=== PATIENT | female | born 1965 | race Caucasian/White ===

== ENCOUNTER 2017-04-14 19:47 | Emergency (ER) | payer BC ==
[~2017-04-14] VITALS: Ht 165.1 cm; Wt 129.0 kg
[2017-04-14] MEDS ORDERED: IV NORMAL SALINE 1,000ML 1,000 ML IV SCH (20:06)
[2017-04-14] MEDS ORDERED: RIVA10TA PO (20:10)
--- NOTE | 2017-04-14 20:14 | PHYS DOC ---
Past History Past Medical History: Cancer Past Surgical History: Cholecystectomy, Hysterectomy Additional Past Surgical Histo: mastectomy, reconstructive breast surgery, lipoma resection Smoking: Non-smoker Alcohol Use: None Drug Use: None Adult General Chief Complaint Chief Complaint: UPPER EXTREMITY PAIN HPI HPI Is a pleasant 52-year-old female with a history of breast cancer who had a left radical mastectomy. She had reconstructive surgery and a lift done on the right breast 3-4 weeks ago and lipase section to replace soft tissue in the left breast reconstruction area at the same time. About 34 days ago patient began having extremity pain in the left biceps/inner arm that described as dull and achy first that has not become more progressive. She has localized swelling and pain to the inside of the bicep with no radiation. She denies any numbness and tingling or weakness of the hand, she denies any direct trauma but says the pain is gotten progressively worse with range of motion and usage of the shoulder and bicep. 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 She denies any direct trauma to the shoulder or bicep. She denies any night sweats weight loss chills fevers rash or other joint swelling or pain. Patient has no shortness of breath no chest pain no other abdominal pain, URI symptoms or neck pain. Pain is presently a 7 of 10 at rest. Patient's pain is 10 of 10 with movement. Patient is feeling so couple she has to sleep in a chair upright at night. sHe says her prior lower extremity DVTs feel just as listed before. She further denies any local IV placement in the last 3-4 weeks over this bicep. Review of Systems Review of Systems Constitutional: Denies fever or chills [] Eyes: Denies change in visual acuity, redness, or eye pain [] HENT: Denies nasal congestion or sore throat [] Respiratory: Denies cough or shortness of breath [] Cardiovascular: No additional information not addressed in HPI [] GI: Denies abdominal pain, nausea, vomiting, bloody stools or diarrhea [] : Denies dysuria or hematuria [] Musculoskeletal: sHe complains of left arm and shoulder pain that's progressive in nature Integument: Denies rash or skin lesions [] Neurologic: Denies headache, focal weakness or sensory changes [] Endocrine: Denies polyuria or polydipsia [] Allergies Allergies Allergies Coded Allergies Type Severity Reaction Last Updated Verified codeine Allergy Intermediate Hives 04/14/17 Yes Physical Exam Physical Exam Constitutional: Well developed, well nourished, no acute distress, non-toxic appearance. Patient is morbidly obese HENT: Normocephalic, atraumatic, bilateral external ears normal, oropharynx moist, no oral exudates, nose normal. [] Eyes: PERRLA, EOMI, conjunctiva normal, no discharge. [] Neck: Normal range of motion, no tenderness, supple, no stridor. [] Cardiovascular:Heart rate regular rhythm, no murmur []agents chest wall does not demonstrate any erythema localized soft tissue swelling or tenderness to palpation on exam. Lungs & Thorax: Bilateral breath sounds clear to auscultation [] Abdomen: Bowel sounds normal, soft, no tenderness, no masses, no pulsatile masses. [] Skin: Warm, dry, no erythema, no rash. [] Back: No tenderness, no CVA tenderness. [] Extremities: She has significant tenderness to palpation of the soft tissue of the left bicep. There is some medial swelling as well. There is no warmth or skin changes in skin color or rash. She has some palpable cords located superficially in the tissue. She has decreased range of motion at the bicep secondary to pain she has no tenderness to palpation over the anterior lateral medial shoulder. She has no tenderness along the biceps tendon. She has brisk capillary refill, brisk peripheral pulses. There is no bony tenderness to palpation of the elbow or hand wrist or forearm. Neurologic: Alert and oriented X 3, normal motor function, normal sensory function, no focal deficits noted. [] Psychologic: Affect normal, judgement normal, mood normal. [] Current Patient Data Lab Results Laboratory Tests Test 04/14/17 20:25 White Blood Count 9.7 x10^3/uL (4.0-11.0) Red Blood Count 4.60 x10^6/uL (3.50-5.40) Hemoglobin 13.1 g/dL (12.0-15.5) Hematocrit 38.3 % (36.0-47.0) Mean Corpuscular Volume 83 fL (79-100) Mean Corpuscular Hemoglobin 28 pg (25-35) Mean Corpuscular Hemoglobin Concent 34 g/dL (31-37) Red Cell Distribution Width 14.2 % (11.5-14.5) Platelet Count 331 x10^3/uL (140-400) Neutrophils (%) (Auto) 64 % (31-73) Lymphocytes (%) (Auto) 23 % (24-48) L Monocytes (%) (Auto) 7 % (0-9) Eosinophils (%) (Auto) 6 % (0-3) H Basophils (%) (Auto) 1 % (0-3) Neutrophils # (Auto) 6.2 x10^3uL (1.8-7.7) Lymphocytes # (Auto) 2.2 x10^3/uL (1.0-4.8) Monocytes # (Auto) 0.6 x10^3/uL (0.0-1.1) Eosinophils # (Auto) 0.5 x10^3/uL (0.0-0.7) Basophils # (Auto) 0.1 x10^3/uL (0.0-0.2) Erythrocyte Sedimentation Rate Pending Sodium Level 143 mmol/L (136-145) Potassium Level 3.8 mmol/L (3.5-5.1) Chloride Level 105 mmol/L (98-107) Carbon Dioxide Level 29 mmol/L (21-32) Anion Gap 9 (6-14) Blood Urea Nitrogen 16 mg/dL (7-20) Creatinine 0.8 mg/dL (0.6-1.0) Estimated GFR (Cockcroft-Gault) 75.0 BUN/Creatinine Ratio 20 (6-20) Glucose Level 169 mg/dL (70-99) H Calcium Level 9.4 mg/dL (8.5-10.1) Total Bilirubin 0.4 mg/dL (0.2-1.0) Aspartate Amino Transferase (AST) 15 U/L (15-37) Alanine Aminotransferase (ALT) 22 U/L (14-59) Alkaline Phosphatase 134 U/L (46-116) H Creatine Kinase 69 U/L (26-192) Creatine Kinase MB (Mass) < 0.5 ng/mL (0.0-3.6) Creatine Kinase MB Relative Index 0.7 % (0-4) Troponin I Quantitative < 0.017 ng/mL (0-0.055) C-Reactive Protein 14.0 mg/L (0-3.3) H Total Protein 7.8 g/dL (6.4-8.2) Albumin 3.6 g/dL (3.4-5.0) Albumin/Globulin Ratio 0.9 (1.0-1.7) L EKG EKG EKG timed 8:25 PM 04/14/2017 demonstrates heart rate of 89 there is a pediatric QRS revision of a normal sinus rhythm there is significant left axis deviation TX interval 176 which is normal, QS with is 112 which is mildly elevated representing a left anterior fascicular block patient has an ATV L leg greater than 15 mV which is likely secondary to ventricular hypertrophy of the left ventricle, patient also has a questionable Q wave in V1 and V2 V3 which may represent an old infarct.[] Radiology/Procedures Radiology/Procedures []Has had ultrasound did not demonstrate any signs of obstruction of the blood vessels. There is no DVT, no soft tissue swelling, no abscess noted on ultrasound. Course & Med Decision Making Course & Med Decision Making Pertinent Labs and Imaging studies reviewed. (See chart for details) she presents with left arm pain following a surgical procedure 3-4 weeks ago. My concern is more with inflammatory or infectious process as opposed to a DVT in the superficial blood vessels of the arm. Patient's pain is improved with therapy at this time 9:05 PM. She is normal, CMP is unremarkable with exception of C-reactive protein which is elevated at 14. This may represent an inflammatory and infectious process still waiting DVT study. Time is now 9:45 PM patient is still having discomfort feels markedly improved with pain medication provided. Ultrasound reviewed by me and read by radiology demonstrates no DVT, no soft tissue swelling or abscess collection underneath this tissue skin. [] This point my considerations include localized soft tissue inflammation or a myositis, inflammation of the lipids or soft tissue fat below the tissue, cellulitis, soft tissue contusion. I'll provide her some anti-inflammatory pain medications and have her follow up with her primary care doctor as a do not believe this is a cellulitis or abscess that needs drainage at this time. Precautions were given to the and patient at bedside Dragon Disclaimer Dragon Disclaimer This chart was dictated in whole or in part using Voice Recognition software in a busy, high-work load, and often noisy Emergency Department environment. It may contain unintended and wholly unrecognized errors or omissions. Departure Departure: Impression: Primary Impression: Arm pain, left Disposition: 01 HOME, SELF-CARE Condition: STABLE Referrals: RAHUL HUSSEIN MD (PCP) Patient Instructions: Musculoskeletal Pain, Pain Medicine Instructions, Pain of Unknown Etiology (Pain without a known Cause) Additional Instructions: My discharge plan Follow up: In addition patient is asked to followup with their primary doctor, within a week for followup examination and to address patient's ongoing medical conditions. Patient is advised that in the Emergency Department primary complaints are addressed and only in light of known signs and symptoms. Patient should return immediately to the emergency department if new signs and symptoms develop or patient's condition worsens in any way. At time of discharge patient was in stable condition and had verbalized understanding of the discharge instructions. Although the ultrasound of the arm does not demonstrate any signs of clot this does not mean clots on metformin future please continue your appropriate therapy and follow-up with her regular doctor. Scripts Oxycodone Hcl/Acetaminophen (PERCOCET 5-325 MG TABLET) 1 Each Tablet 1-2 TAB PO Q4-6HRS, #10 TAB Prov: TOM MCCONNELL MD 04/14/17 Naproxen Sodium (NAPROXEN SODIUM) 275 Mg Tablet 275 MG PO BID for 7 Days, #14 TAB Prov: TOM MCCONNELL MD 04/14/17 TOM MCCONNELL MD Apr 14, 2017 20:14
[2017-04-14] MEDS ORDERED: 0.9 % SODIUM CHLORIDE 10 ML DISP.SYRIN. IV PRN (20:15)
[2017-04-14 20:41] LABS: BASO # 0.1 x10^3/uL (0.0-0.2); BASO % 1 % (0-3); EOS # 0.5 x10^3/uL (0.0-0.7); EOS % 6 % (0-3); HEMATOCRIT 38.3 % (36.0-47.0); HEMOGLOBIN 13.1 g/dL (12.0-15.5); LYMPH # 2.2 x10^3/uL (1.0-4.8); LYMPH % 23 % (24-48); MEAN CORPUSCULAR HEMOGLOBIN 28 pg (25-35); MEAN CORPUSCULAR HGB CONC 34 g/dL (31-37); MEAN CORPUSCULAR VOLUME 83 fL (79-100); MONO # 0.6 x10^3/uL (0.0-1.1); MONO % 7 % (0-9); NEUT # 6.2 x10^3uL (1.8-7.7); NEUT % 64 % (31-73); PLATELET COUNT 331 x10^3/uL (140-400); RED CELL DISTRIBUTION WIDTH 14.2 % (11.5-14.5); WHITE BLOOD COUNT 9.7 x10^3/uL (4.0-11.0)
[2017-04-14] MEDS: HYDROmorphone PF 2 MG/ML VIAL IV/SQ PRN ×2 (20:41→22:18)
[2017-04-14 21:00] LABS: ALBUMIN 3.6 g/dL (3.4-5.0); ALBUMIN/GLOBULIN RATIO 0.9 (1.0-1.7); ALK PHOS 134 U/L (46-116); ALT (SGPT) 22 U/L (14-59); ANION GAP 9 (6-14); AST (SGOT) 15 U/L (15-37); BLOOD UREA NITROGEN 16 mg/dL (7-20); BUN/CREATININE RATIO 20 (6-20); CALCIUM 9.4 mg/dL (8.5-10.1); CARBON DIOXIDE 29 mmol/L (21-32); CHLORIDE 105 mmol/L (98-107); CREATINE KINASE 69 U/L (26-192); CREATININE 0.8 mg/dL (0.6-1.0); GLUCOSE 169 mg/dL (70-99); POTASSIUM 3.8 mmol/L (3.5-5.1); SODIUM 143 mmol/L (136-145); TOTAL BILIRUBIN 0.4 mg/dL (0.2-1.0); TOTAL PROTEIN 7.8 g/dL (6.4-8.2)
[2017-04-14] MEDS ORDERED: OXYC-323 PO (21:54)
[2017-04-14] MEDS ORDERED: NAPR275T59 PO (21:54)
[2017-04-14 22:01] LABS: SEDIMENTATION RATE 31 (0-25)
--- NOTE | 2017-04-14 22:11 | RAD ---
Left upper extremity venous duplex study 04/14/2017 CLINICAL HISTORY: Left arm pain for 3 days. TECHNIQUE: Using a combination of real-time ultrasound imaging and color-flow and pulse Doppler imaging techniques along with graded compression and augmentation, duplex evaluation of the major venous structures of the left upper extremity to include the left internal jugular and left subclavian veins was performed. Multiple images were obtained. FINDINGS: There is no sonographic evidence of venous thrombosis involving the visualized venous structures of the left upper extremity. No sonographic abnormality is seen in the area of pain within the anterolateral mid superior left arm. No abnormal fluid collection is seen. IMPRESSION: Negative study. Electronically signed by: Jeff Clark MD (04/14/2017 10:08 PM) [facility]
[2017-04-14 22:20] VITALS: BP 154/76
--- NOTE | 2017-04-15 02:05 | EKG ---
[address] [address] Test Date: 2017-04-14 Test Time: 20:25:59 Pat Name: JACOB GRUBBS Department: Room: Gender: F Lpn Instructor: UMER : 1965 Requested By: TOM MCCONNELL Order Number: [id number] Reading MD: Nathaniel Cano Measurements Intervals [place] Rate: 89 P: 42 LA: 176 QRS: -47 QRSD: 112 T: 63 QT: 356 QTc: 434 Interpretive Statements SINUS RHYTHM ABNORMAL LEFT AXIS DEVIATION LEFT ANTERIOR FASCICULAR BLOCK LEFT VENTRICULAR HYPERTROPHY QRS(T) CONTOUR ABNORMALITY CONSIDER ANTEROSEPTAL MYOCARDIAL DAMAGE Electronically Signed On 04-19-2017 8:19:53 CDT by Nathaniel Cano
--- NOTE | 2017-04-15 09:44 | RAD ---
CHEST PA LATERAL Clinical Indication: left shoulder arm pain Comparison: None. Findings: Normal lung volume. No focal consolidation. Normal pulmonary vasculature. No pleural effusion or pneumothorax. The cardiomediastinal silhouette is normal. Tortuous thoracic aorta. Surgical clips overlying the left hemithorax. No acute osseous abnormality. IMPRESSION: No acute cardiopulmonary process.
== END 2017-04-14 22:23 | disposition home or self-care (01) ==
LOC: ER 19:47
DX: M79.602 Pain in left arm (principal); Z86.718 Personal history of other venous thrombosis and embolism; Z90.12 Acquired absence of left breast and nipple; Z88.5 Allergy status to narcotic agent
CPT/HCPCS: 36415; 71020; 80053; 82553; 84484; 85025; 85610; 85651; 85730; 86140; 93005; 93971; 96361; 96374; 96376; 99285; J1170; J7030

== ENCOUNTER → 2017-05-17 | Outpatient (CLI) | payer BC ==
[~2017-05-17] MED LIST: NAPR275T59 PO; OXYC-323 PO; RIVA10TA PO
== END | disposition home or self-care (01) ==
LOC: LAB 11:13
PROVIDERS: ATTEND Nurse Practitioner Family
DX: E03.9 Hypothyroidism, unspecified (principal)
CPT/HCPCS: 36415; 84436; 84443; 84481

== ENCOUNTER → 2017-08-16 | Outpatient (CLI) | payer BC ==
--- NOTE | 2017-08-16 10:35 | RAD ---
Examination: CT of the abdomen pelvis without contrast. History: History of hernia Comparison: None available Technique: Axial CT images of the abdomen pelvis were performed without contrast with coronal and sagittal reformats are performed. PQRS Compliance Statement: One or more of the following individualized dose reduction techniques were utilized for this examination: 1. Automated exposure control 2. Adjustment of the mA and/or kV according to patient size 3. Use of iterative reconstruction technique Findings: The visualized bibasal lungs are clear. No evidence of free air identified in the abdomen Enlarged appearing liver with diffuse decreased attenuation throughout the liver likely hepatic steatosis. There is a cystic structure identified in the left lobe of the liver measuring 1.3 cm. The visualized spleen, adrenals grossly appears unremarkable. Cholecystectomy clips are identified. The stomach is mildly distended. Visualized pancreas grossly appears unremarkable. The small bowel is nondilated. The appendix is normal. Feces and gas noted in the colon. Few sigmoid colon diverticulosis. Urinary bladder is mildly distended. Small anterior abdominal wall hernia identified at the level of the umbilicus with extension of small bowel loops into the hernia without obvious obstruction. There is extension of omentum into the hernia. The hernia extends just to the left of the umbilicus. No evidence of intrarenal collecting system calculi or hydronephrosis. There is a small cystic structure identified in the posterior aspect of the right kidney measuring 1.3 cm difficult to characterize. Prior surgical changes of hysterectomy identified. Mild degenerative changes throughout the lumbar spine. Impression: 1. Anterior abdominal wall ventral hernia identified the umbilicus with extension of small bowel loops into the hernia without obvious obstruction. 2. 1.3 cm cystic structure identified in the right kidney could be cyst or cystic lesion. Recommend follow-up ultrasound kidneys. 3. Hepatomegaly with hepatic steatosis. There is a 1.3 cm cyst is identified in the left lobe of the liver could be a cyst or cystic lesion. Follow-up ultrasound may be useful.
== END | disposition home or self-care (01) ==
LOC: CT 09:58
PROVIDERS: ATTEND Physician Assistant Medical
DX: K43.9 Ventral hernia without obstruction or gangrene (principal); K76.0 Fatty (change of) liver, not elsewhere classified; K57.30 Diverticulosis of large intestine without perforation or abscess without bleeding; K76.89 Other specified diseases of liver
CPT/HCPCS: 74176

== ENCOUNTER 2018-07-16 22:09 | Emergency (ER) | payer BC ==
[~2018-07-16] VITALS: Ht 165.1 cm; Wt 104.8 kg
[~2018-07-16 22:09] MED LIST changes: -OXYC-323 PO; +OXYC1TAB15 PO
[2018-07-16] MEDS: oxyCODONE/APAP 5/325 1 TAB TABLET PO ONE (22:49)
--- NOTE | 2018-07-16 23:10 | ED.ADGEN ---
Past History Past Medical History: Cancer Past Surgical History: Cholecystectomy, Hysterectomy Additional Past Surgical Histo: mastectomy, reconstructive breast surgery, lipoma resection Smoking: Non-smoker Alcohol Use: None Drug Use: None Adult General HPI HPI Patient is a 53 year old female who presents with right leg pain. Patient presents to the ER with a 3 to four-day history of worsening pain and swelling in the right lower extremity. Pain seems to be around the knee and is perceived in the popliteal fossa. She denies any recent trauma. The patient's primary complaint is that she has a prior history of 2 DVTs. She is on lifelong anticoagulation therapy with Xeralto. She has been compliant with this medication. No recent fever or chills. No nausea or vomiting. No chest pain or shortness of breath. No additional complaints today. Review of Systems Review of Systems Constitutional: Denies fever or chills Eyes: Denies change in visual acuity HENT: Denies Respiratory: Denies cough or shortness of breath Cardiovascular: No additional information not addressed in HPI Musculoskeletal: as documented above Integument: Denies rash Neurologic: Denies headache All other systems were reviewed and found to be within normal limits, except as documented in this note. Current Medications Current Medications Current Medications Medications (Trade) Dose Ordered Sig/Gayla Start Time Stop Time Status Last Admin Dose Admin Enoxaparin Sodium (Lovenox 100mg Syringe) 100 mg 1X ONCE 07/17/18 00:45 07/17/18 00:46 DC Oxycodone/ Acetaminophen (Percocet 5/325) 2 tab 1X ONCE 07/16/18 22:45 07/16/18 22:46 DC 07/16/18 22:49 2 TAB Allergies Allergies Allergies Coded Allergies Type Severity Reaction Last Updated Verified codeine Allergy Intermediate Hives 04/14/17 Yes Physical Exam Physical Exam Constitutional: Well developed, well nourished, no acute distress, non-toxic appearance HENT: Normocephalic, atraumatic, bilateral external ears normal Eyes: PERRLA, EOMI, conjunctiva normal Neck: Normal range of motion Lungs & Thorax: Bilateral breath sounds clear Abdomen: Bowel sounds normal, soft, no tenderness Skin: Warm, dry, no erythema, no rash Extremities: No appreciable swelling to the right lower extremity. The calf compartments are soft and nontender. There is no pain about the knee with passive range of motion. I cannot reproduce the patient's pain symptoms with firm palpation of the lower extremity. She has equal pulses in bilateral lower extremities and brisk capillary refill Neurologic: Alert and oriented X 3, normal motor function, normal sensory function, no focal deficits noted Psychologic: Affect normal Current Patient Data Vital Signs Vital Signs Date Time Temp Pulse Resp B/P (MAP) Pulse Ox O2 Delivery O2 Flow Rate FiO2 07/16/18 22:49 18 97 Room Air 07/16/18 22:15 98.1 88 EKG EKG [] Radiology/Procedures Radiology/Procedures DVT Study RLE: FINDINGS: No DVT with patent color Doppler blood flow and augmentation of blood flow of the right common femoral vein and profunda femoral vein and superficial femoral vein. At the popliteal vein there is nonocclusive thrombus of its upper segment and occlusive thrombus of its lower segment. No thrombosis with patent blood flow the posterior tibial and peroneal veins in the calf. IMPRESSION: DVT of the right popliteal vein. Course & Med Decision Making Course & Med Decision Making Pertinent Labs and Imaging studies reviewed. (See chart for details) Patient is evaluated immediately on arrival to her room. Her primary interest in coming to the emergency department is to rule out a DVT in the affected extremity. No history of trauma. She is given some Percocet for pain which she states she tolerates despite her allergy to codeine. Ultrasound of the right lower extremity is ordered. 00:46: All results are discussed with the patient. She is found to have a DVT in the right popliteal vein. The DVT does appear acute as compared to chronic according to radiologist. The patient endorses compliance with her anticoagulation therapy. I did consult with the rubber insulator on-call regarding treatment. It was recommended to stop the Xeralto and begin lovenox injections. By the patient's weight, her dose is 100u SQ bid. She is given the first dose in the ER. This patient has treated herself previously with injections of Lovenox. She is discharged home with a prescription. She is advised to follow- up with her rubber insulator. She is also given medication for pain. Opiate precautions were discussed. All her questions were answered prior to discharge home and she was agreeable. This evening, there was no acute indication for admission to the hospital. Final Impression Final Impression Popliteal DVT Dragshannon Disclaimer Dragon Disclaimer This electronic medical record was generated, in whole or in part, using a voice recognition dictation system. GUSTABO POLO DO Jul 16, 2018 23:10
--- NOTE | 2018-07-17 00:11 | RAD ---
Right lower extremity venous duplex Doppler ultrasound HISTORY: Right posterior knee pain, history of DVT 2 years ago. TECHNIQUE: Grayscale and duplex Doppler sonography were utilized. FINDINGS: No DVT with patent color Doppler blood flow and augmentation of blood flow of the right common femoral vein and profunda femoral vein and superficial femoral vein. At the popliteal vein there is nonocclusive thrombus of its upper segment and occlusive thrombus of its lower segment. No thrombosis with patent blood flow the posterior tibial and peroneal veins in the calf. IMPRESSION: DVT of the right popliteal vein. Critical results called to Dr. Casas at 1205 am July 17, 2018. Electronically signed by: Dm Tang MD (07/17/2018 12:06 AM) [facility]
[2018-07-17] MEDS ORDERED: ENOX40DI SQ (00:41)
[2018-07-17] MEDS ORDERED: OXYC-325 PO (00:42)
[2018-07-17] MEDS: ENOXAPARIN ** NOTE DOSE ** SYRINGE SQ ONE (00:55)
[2018-07-17 00:57] VITALS: BP 127/68
== END 2018-07-17 01:00 | disposition home or self-care (01) ==
LOC: ER 22:09
DX: I82.431 Acute embolism and thrombosis of right popliteal vein (principal); Z88.5 Allergy status to narcotic agent
CPT/HCPCS: 93971; 96372; 99284; J1650

== ENCOUNTER → 2018-08-22 | Outpatient (CLI) | payer BC ==
[~2018-08-22] MED LIST changes: +ENOX40DI SQ; +OXYC-325 PO
[2018-08-22 10:23] LABS: BASO % 1 % (0-3); EOS # 0.2 x10^3/uL (0.0-0.7); EOS % 5 % (0-3); HEMATOCRIT 39.9 % (36.0-47.0); HEMOGLOBIN 13.7 g/dL (12.0-15.5); LYMPH % 42 % (24-48); MEAN CORPUSCULAR HEMOGLOBIN 29 pg (25-35); MEAN CORPUSCULAR HGB CONC 34 g/dL (31-37); MEAN CORPUSCULAR VOLUME 85 fL (79-100); MONO # 0.5 x10^3/uL (0.0-1.1); MONO % 9 % (0-9); NEUT # 2.1 x10^3uL (1.8-7.7); NEUT % 43 % (31-73); PLATELET COUNT 293 x10^3/uL (140-400); RED BLOOD COUNT 4.69 x10^6/uL (3.50-5.40); RED CELL DISTRIBUTION WIDTH 14.6 % (11.5-14.5); WHITE BLOOD COUNT 4.9 x10^3/uL (4.0-11.0)
[2018-08-22 10:35] LABS: ALBUMIN 3.4 g/dL (3.4-5.0); ALBUMIN/GLOBULIN RATIO 0.9 (1.0-1.7); CALCIUM 9.1 mg/dL (8.5-10.1); CREATININE 0.7 mg/dL (0.6-1.0); GFR 87.2; POTASSIUM 3.8 mmol/L (3.5-5.1); TOTAL BILIRUBIN 0.6 mg/dL (0.2-1.0); TOTAL PROTEIN 7.2 g/dL (6.4-8.2)
[2018-08-22 10:40] LABS: BACTERIA,URINE MANY /HPF (0-FEW); BILIRUBIN,URINE NEG (NEG); CLARITY,URINE TURBID; COLOR,URINE AMBER; GLUCOSE,URINE NEG (NEG); NITRITE,URINE NEG (NEG); RBC,URINE 20-40 /HPF (0-2); SQUAMOUS EPITHELIAL CELL,UR OCC /LPF; UROBILINOGEN,URINE 0.2 mg/dL (0.2 mg/dL)
[2018-08-22 10:41] LABS: AMORPHOUS SEDIMENT,UR PRESENT /HPF
[2018-08-22 20:32] LABS: FREE T4 0.85 ng/dL (0.76-1.46); THYROID STIM HORMONE (TSH) 3.453 uIU/mL (0.358-3.740)
[2018-08-22 23:12] LABS: HEMOGLOBIN A1C 5.8 % (4.8-5.6)
== END | disposition home or self-care (01) ==
LOC: LAB 09:09
PROVIDERS: ATTEND Physician Assistant Medical
DX: E11.9 Type 2 diabetes mellitus without complications (principal); E78.00 Pure hypercholesterolemia, unspecified
CPT/HCPCS: 36415; 80053; 80061; 81001; 83036; 84439; 84443; 84481; 85025; 87086; 87186

== ENCOUNTER → 2018-12-12 | Outpatient (CLI) | payer BC ==
[2018-12-12 12:33] LABS: ALBUMIN 3.5 g/dL (3.4-5.0); DIRECT BILIRUBIN 0.2 mg/dL (0.0-0.2); TOTAL BILIRUBIN 0.8 mg/dL (0.2-1.0); TOTAL PROTEIN 7.1 g/dL (6.4-8.2)
== END | disposition home or self-care (01) ==
LOC: LAB 10:32
PROVIDERS: ATTEND Podiatrist Foot & Ankle Surgery
DX: B35.1 Tinea unguium (principal)
CPT/HCPCS: 36415; 80076

== ENCOUNTER → 2019-12-09 | Outpatient (CLI) | payer BC | END | disposition home or self-care (01) | LOC: LAB 11:27 | PROVIDERS: ATTEND Internal Medicine Hematology & Oncology | DX: I82.413 Acute embolism and thrombosis of femoral vein, bilateral (principal) | CPT/HCPCS: 36415; 81241 ==

== ENCOUNTER → 2020-05-07 | Outpatient (CLI) | payer BC ==
--- NOTE | 2020-05-07 14:46 | RAD ---
PROCEDURE: FOOT RIGHT 3V STUDY DATE: 05/07/2020 CLINICAL INDICATION / HISTORY: Reason right foot pain. TECHNIQUE: AP, lateral and oblique views of the right foot. COMPARISON: None FINDINGS: No fracture or dislocation is identified. The bone density is normal. The joint space widths are maintained, and there are no erosions to suggest an inflammatory arthropathy. Mild forefoot soft tissue swelling is seen. IMPRESSION: Right forefoot soft tissue swelling. No associated acute osseous abnormality shown. Electronically signed by: Hector Michaels MD (05/07/2020 2:43 PM) [id number]
== END ==
LOC: PMG 10:00
PROVIDERS: ATTEND Physician Assistant
DX: R22.41 Localized swelling, mass and lump, right lower limb (principal)
CPT/HCPCS: 73630